=== PATIENT | male | born 1975 | race Caucasian/White ===

== ENCOUNTER 2020-07-04 09:00 | Outpatient (CLI) | payer OTHER | END 2020-07-04 09:01 | disposition home or self-care (01) | LOC: COV 09:00 | PROVIDERS: ATTEND Family Medicine | DX: Z20.828 Contact with and (suspected) exposure to other viral communicable diseases (principal) ==

== ENCOUNTER 2021-06-08 18:13 | Emergency (ER) | payer OTHER ==
[2021-06-08 18:22] VITALS: BP 155/100
[2021-06-08] MEDS ORDERED: BUFFERED LIDOCAINE 10 ML SYRINGE SUBQ STA (19:00)
--- NOTE | 2021-06-08 19:01 | ED Physician Documentation ---
PD HPI UPPER EXT INJURY - Stated complaint Stated Complaint: left hand lac - Chief complaint Chief Complaint: Laceration - History obtained from History obtained from: Patient - History of Present Illness Location: Left (45-year-old gentleman who is up-to-date on tetanus accidentally stabbed himself with a knife to the left wrist at home just prior to arrival. No other injuries. He is right-handed.) Review of Systems Constitutional: reports: Reviewed and negative Eyes: reports: Reviewed and negative Ears: reports: Reviewed and negative Nose: reports: Reviewed and negative PD PAST MEDICAL HISTORY - Past Medical History Past Medical History: No - Past Surgical History Past Surgical History: No - Present Medications Home Medications: Ambulatory Orders Medication Instructions Recorded Confirmed levoFLOXacin [Levofloxacin] 500 mg ORAL DAILY 06/08/21 06/08/21 - Allergies Allergies/Adverse Reactions: Allergies Allergy/AdvReac Type Severity Reaction Status Date / Time No Known Drug Allergies Allergy Verified 06/08/21 18:19 - Social History Does the pt smoke?: No Smoking Status: Never smoker Does the pt drink ETOH?: No Does the pt have substance abuse?: No - Immunizations Immunizations: TDAP current <10years PD ED PE NORMAL - Vitals Vital signs reviewed: Yes - General General: Alert and oriented X 3, No acute distress - Extremities Extremities: Other (1-1/2 cm V-shaped laceration several centimeters proximal to the wrist flexor crease on the ulnar side without distal neurovascular compromise including focused attention to each of the flexor tendons of the digits.) - Neuro Neuro: Alert and oriented X 3, Normal speech Results - Vitals Vitals: Vital Signs - 24 hr 06/08/21 18:18 Temperature 36.2 C L Heart Rate 94 Respiratory 16 Rate Blood Pressure 155/100 H O2 Saturation 97 Oxygen O2 Source Room air Procedures - Laceration (location) L wrist Length in cm: 1.5 Wound type: Into subcut fat Neurovascular status: Sensory intact, Motor intact, Vascular intact Anesthesia: Lidocaine 1%, With bicarb Wound preparation: Irrigated copiously NS Skin layer closure: Nylon, Interrupted, Size #-0 - enter number (4-0), Sutures - enter # (3) Other: Patient tolerated well, No complications, Neurovascular intact, Tetanus UTD Departure - Departure Disposition: 01 Home, Self Care Clinical Impression: Laceration of left wrist Qualifiers: Encounter type: initial encounter Qualified Code(s): S61.512A - Laceration without foreign body of left wrist, initial encounter Condition: Good Record reviewed to determine appropriate education?: Yes Instructions: ED Laceration Hand Comments: Come back for any signs of infection which would include: Redness, swelling, drainage, increased pain, or fevers. You can wash it soap and water. Keep it covered and moist with bacitracin ointment which is available over the counter; avoid neosporin. Follow-up with your physician in 14 days for suture removal.
== END 2021-06-08 19:15 | disposition home or self-care (01) ==
LOC: ED 18:13
DX: S61.512A Laceration without foreign body of left wrist, initial encounter (principal); W26.0XXA Contact with knife, initial encounter; Y92.009 Unspecified place in unspecified non-institutional (private) residence as the place of occurrence of the external cause
CPT/HCPCS: 12001; 99282; 99283

== ENCOUNTER 2021-06-20 09:34 | Outpatient (CLI) | payer OTHER ==
--- NOTE | 2021-06-20 11:11 | Ultrasound Report ---
PROCEDURE: Testicle INDICATIONS: LEFT EPIDIDYMITIS TECHNIQUE: Real-time scanning was performed of the scrotum and testicles, with image documentation. Color and p ulse Doppler interrogation was performed of both testicles. COMPARISON: Scrotal ultrasound 09/02/2011. FINDINGS: Right: Testicle is normal in size at 4.7 x 1.8 x 3.3 cm, and homogenous in echotexture. Epididymis is normal in overall size and morphology. No hydrocele or varicoceles. Overlying scrotal skin is no rmal in thickness. Left: Testicle is normal in size at 4.2 x 2.2 x 3.4 cm, and homogeneous in echotexture. Epididymis is normal in overall size and morphology. A septated cystic lesion is seen adjacent to the left epid idymis measuring 3.9 x 1.8 x 3 cm, consistent with a spermatocele. Miscellaneous and has increased in size when compared to the remote prior ultrasound from 09/02/2011. No hydrocele or varicoceles. Ove rlying scrotal skin is normal in thickness. Doppler: Color and pulse Doppler demonstrate normal and symmetric arterial flow in both testicles. IMPRESSION: 1. No sonographic evidence of testicular torsion or epididymitis. 2. Septated 3.9 cm cystic lesion adjacent to the left epididymis is most likely a spermatocele. Reviewed by: Baudilio Smart MD on 06/20/2021 11:09 AM PDT Approved by: Baudilio Smart MD on 06/20/2021 11:09 AM PDT Station ID: [id number]
== END 2021-06-20 09:35 | disposition home or self-care (01) ==
LOC: DI 09:34
PROVIDERS: ATTEND Physician Assistant Medical
DX: N45.1 Epididymitis (principal); R93.89 Abnormal findings on diagnostic imaging of other specified body structures